=== PATIENT | female | born 1955 | race Two or more races ===

== ENCOUNTER 2022-05-18 18:48 | Inpatient (IN) | payer OTHER ==
[~2022-05-18] VITALS: Ht 154.9 cm; Wt 60.8 kg
[~2022-05-18 18:48] MED LIST: PROVENTIL3 ML/2.5 M IH; SINGULAIR 10MG10 MG PO; SYMBICORT 16010.2 GM IH; ZYNCOF 20-400120 ML PO
[2022-05-18] MEDS ORDERED: INTEGRA PLUS C1 EACH (19:05)
[2022-05-18] MEDS ORDERED: KLOR-CON M1010 MEQ (19:06)
[2022-05-18] MEDS ORDERED: LEVOTHYROXINE25 MCG (19:06)
[2022-05-18] MEDS ORDERED: ELIQUIS2.5 MG (19:07)
[2022-05-18] MEDS ORDERED: CEFDINIR300 MG (19:07)
[2022-05-18] MEDS ORDERED: ACID REDUCER20 M1 (19:07)
[2022-05-21] MEDS ORDERED: SYMBICORT 80/10.2 GM (14:39)
[2022-05-21] MEDS ORDERED: GABAPENTIN300 M2 (14:39)
[2022-05-21] MEDS ORDERED: OMEPRAZOLE20 MG (14:39)
[2022-05-21] MEDS ORDERED: ONDANSETRON HCL4 MG (14:39)
[2022-05-21] MEDS ORDERED: FUROSEMIDE20 MG (14:39)
[2022-05-21] MEDS ORDERED: INTEGRA PLUS C1 EAC1 (14:39)
[2022-05-21] MEDS ORDERED: CLONAZEPAM0.5 MG (14:39)
[2022-05-21] MEDS ORDERED: FLUDROCORTISON0.1 MG (14:39)
[2022-05-21] MEDS ORDERED: DOCUSATE CALCI240 MG (14:40)
[2022-05-21] MEDS ORDERED: PANTOPRAZOLE SO40 MG (14:40)
[2022-05-21] MEDS ORDERED: BUPROPION XL150 MG (14:40)
== END 2022-05-28 15:07 | disposition home or self-care (01) | DRG 872 ==
LOC: ER 18:48 → MEDI 05-19 10:24
PROVIDERS: ADMIT Internal Medicine; ATTEND Internal Medicine
PROC: 4A12X4Z Monitoring of Cardiac Electrical Activity, External Approach (ICD-10-PCS; 2022-05-19)
PROC: 30233N1 Transfusion of Nonautologous Red Blood Cells into Peripheral Vein, Percutaneous Approach (ICD-10-PCS; principal; 2022-05-21)
DX: A41.51 Sepsis due to Escherichia coli [E. coli] (principal); N39.0 Urinary tract infection, site not specified; K86.2 Cyst of pancreas; C18.9 Malignant neoplasm of colon, unspecified; D64.89 Other specified anemias; D63.8 Anemia in other chronic diseases classified elsewhere; E87.6 Hypokalemia; B96.20 Unspecified Escherichia coli [E. coli] as the cause of diseases classified elsewhere; Z90.49 Acquired absence of other specified parts of digestive tract; Z93.3 Colostomy status